=== PATIENT | male | born 1960 | race American Indian/Alaskan Native ===

== ENCOUNTER 2018-05-04 11:47 | Inpatient (IN) | payer OTHER ==
--- NOTE | 2018-05-04 11:45 | Cat Scan Report ---
CTA chest: Chest pain with elevated d-dimer. Rapid sequence images are obtained through the chest following IV contrast administration. Pulmonary embolus protocol utilized. 2-D coronal and sagittal images included. The pulmonary vessels are well opacified. There is a thrombus in the left main pulmonary artery which extends into the proximal superior and inferior pulmonary arteries. Several peripheral thrombi are identified in the lower lobe vessels. There is a thrombus in the right upper lobe pulmonary artery as well as multiple thrombi in the peripheral vessels of the right lower lobe. There is minimal reflux of contrast into the IVC. The interventricular septum is normal in position. The cardiac chambers appear generally normal in size. No cardiac thrombi noted. No adenopathy identified. The central airways are patent. The lungs are clear and well-inflated. No pleural effusion present. Impression: Moderate load of bilateral pulmonary emboli. Dr. Sagar Recinos notified.
--- NOTE | 2018-05-04 13:02 | Consultation ---
History of Present Illness Consult date: 05/04/18 Requesting physician: IAIN HOANG Consult reason: known to you History of present illness: The patient is a 57 year old male with no significant medical history who presented to Dr. Rush's office last week with complaints of shortness of breath and chest tightness ongoing for the past several days. He ordered a d- dimer which was 6,967. He was scheduled for a stat chest CTA which he had done at [facility] this morning which revealed moderate load of bilateral PE. He has been directly admitted for further evaluation and management. He denies any recent travel or prolonged immobilization. No previous history of PE or DVT. Past History Past Medical History: No medical history Past Surgical History: No surgical history Social history: smoking (occasional cigar). denies: alcohol abuse, prescription drug abuse, IV drug use Family history: no significant family history Medications and Allergies Allergies Allergy/AdvReac Type Severity Reaction Status Date / Time No Known Allergies Allergy Unverified 05/04/18 10:15 Review of Systems Constitutional: no fever, no chills Ears, nose, mouth and throat: no nasal congestion, no nasal discharge, no sinus pressure Cardiovascular: chest pain, shortness of breath, dyspnea on exertion Respiratory: no cough, no congestion, no wheezing Gastrointestinal: no abdominal pain, no nausea, no vomiting, no diarrhea, no constipation Genitourinary Male: no dysuria, no hematuria Musculoskeletal: no neck stiffness, no neck pain, no myalgias Integumentary: no rash, no pruritis Neurological: no parathesias, no numbness, no tingling, no headaches Endocrine: no cold intolerance, no heat intolerance Hematologic/Lymphatic: no easy bruising, no easy bleeding Allergic/Immunologic: no urticaria, no wheezing Physical Examination Vital Signs Temp Pulse Resp BP Pulse Ox 98.8 F 78 22 121/88 96 05/04/18 11:59 05/04/18 11:59 05/04/18 11:59 05/04/18 11:59 05/04/18 11:59 General appearance: no acute distress HEENT: Positive: PERRL, Normocephaly, Mucus Membranes Moist Neck: Positive: neck supple, trachea midline Cardiac: Positive: Reg Rate and Rhythm, S1/S2 Lungs: Positive: clear to auscultation Neuro: Positive: Grossly Intact Abdomen: Positive: Soft, Active Bowel Sounds. Negative: Tender Skin: Positive: Clear. Negative: Rash Extremities: Present: normal. Absent: edema Results - Imaging and Cardiology Echo: pending EKG: image reviewed (normal sinus rhythm) EKG interpretations - Telemetry EKG Rhythm: Sinus Rhythm - EKG Sinus rhythms and dysrhythmias: sinus rhythm Assessment and Plan Assessment/Plan: Acute PE Check hypercoaguable profile Check echo and BLE venous Dopplers Initiate heparin gtt The patient has been seen in conjunction with Dr. Recinos who agrees with the assessment and plan of care.
--- NOTE | 2018-05-04 13:28 | History and Physical Report ---
History of Present Illness Date of admission: 05/04/18 12:05 Chief complaint: It hurts when i breathe real deep History of present illness: 57 YO Male with NO PMH presents to ED for evaluation. Pt states that he has experienced shortness of breath over the past week with persistent symptoms over the past 3 days. Pt was seen by his intermediate frame tender, and underwent D dimer which was elevated. Pt subsequently underwent CTA of the chest which revealed bilateral Pulmonary Emboli. Pt admitted directly to medical floor at the request of the cardiology team. Pt seen and evaluated upon arrival. Pt acknowledges right calf pain. Pt denies fever, chills, CP, Palpitations, NVD, Syncope, Prolonged travel/immobility, individual/family history of DVT/PE, hemoptysis, trauma, productive cough, or recent ill contacts. Past History Past Medical History: No medical history, other (reviewed) Past Surgical History: No surgical history (reviewed) Social history: Family history: no significant family history (reviewed) Medications and Allergies Allergies Allergy/AdvReac Type Severity Reaction Status Date / Time No Known Allergies Allergy Unverified 05/04/18 10:15 Review of Systems Constitutional: no weight loss, no weight gain, no fever, no chills Ears, nose, mouth and throat: no ear pain, no ear discharge, no tinnitis, no decreased hearing, no nose pain, no nasal congestion Cardiovascular: no chest pain, no orthopnea, no palpitations, no rapid/ irregular heart beat, no edema Respiratory: shortness of breath, pleurisy, no dyspnea on exertion Gastrointestinal: no nausea, no vomiting, no diarrhea, no constipation Genitourinary Male: no hematuria, no flank pain, no discharge, no urinary frequency Rectal: no pain, no incontinence, no bleeding Musculoskeletal: no neck stiffness, no neck pain, no shooting arm pain, no arm numbness/tingling Integumentary: no rash, no pruritis, no redness, no sores Neurological: no head injury, no transient paralysis, no paralysis, no weakness , no parathesias Psychiatric: no anxiety, no memory loss, no change in sleep habits, no sleep disturbances, no insomnia, no hypersomnia, no change in appetite, no change in libido Endocrine: no cold intolerance, no heat intolerance, no polyphagia, no excessive thirst, no polydipsia, no polyuria, no nocturia Hematologic/Lymphatic: no easy bruising, no easy bleeding, no lymphadenopathy, no lymphedema Allergic/Immunologic: no urticaria, no persistent infections, no anaphylaxis, no angioedema Exam - Constitutional Vitals: Temp Pulse Resp BP Pulse Ox 98.8 F 78 22 121/88 96 05/04/18 11:59 05/04/18 11:59 05/04/18 11:59 05/04/18 11:59 05/04/18 11:59 General appearance: Present: mild distress - EENT Eyes: Present: PERRL ENT: hearing intact, clear oral mucosa - Neck Neck: Present: supple, normal ROM - Respiratory Respiratory effort: normal Respiratory: bilateral: diminished - Cardiovascular Heart Sounds: Present: S1 & S2. Absent: rub, click - Extremities Extremities: pulses symmetrical, No edema Peripheral Pulses: within normal limits - Abdominal General gastrointestinal: Present: soft, non-tender, non-distended, normal bowel sounds Male genitourinary: Present: normal - Integumentary Integumentary: Present: clear, warm, dry - Musculoskeletal Musculoskeletal: gait normal, strength equal bilaterally - Psychiatric Psychiatric: appropriate mood/affect, intact judgment & insight - Neurologic Neurologic: CNII-XII intact, moves all extremities Results - Labs CBC & Chem 7: 05/04/18 15:24 05/04/18 15:24 Assessment and Plan - Patient Problems (1) Pulmonary embolism Current Visit: Yes Status: Acute Qualifiers: Chronicity: acute Plan to address problem: Bilateral pulmonary embolism, Therapeutic anticoagulation. Discussed anticoagulation. Pt request eliquis and does not want coumadin therapy. Heparin drip discontinued, and patient started on therapeutic eliquis. Hypercoagulable workup, (2) DVT prophylaxis Current Visit: Yes Status: Acute Plan to address problem: scd to ble while in bed.
[2018-05-04 15:38] LABS: Hematocrit 44.6 % (35.5-45.6); Hemoglobin 15.2 gm/dl (11.8-15.2); Mean Corpuscular HGB Conc 34 % (32-34); Mean Corpuscular Hemoglobin 30 pg (28-32); Mean Corpuscular Volume 89 fl (84-94); Platelet Count 181 K/mm3 (140-440); Red Cell Distribution Width 13.7 % (13.2-15.2)
[2018-05-04] MEDS ORDERED: HEPARIN 10,000 UNITS/10 ML IV ONE (15:45)
[2018-05-04 15:47] LABS: INR 0.84 (0.87-1.13)
[2018-05-04 15:55] LABS: BUN/Creatinine Ratio 12; Blood Urea Nitrogen 11 mg/dL (9-20); Calcium 9.7 mg/dL (8.4-10.2); Hemolysis Index 5
[2018-05-04] MEDS ORDERED: HEPARIN/ 0.45% NACL-25,000 UNIT/500 ML 25,000 UNIT/500 ML BAG IV SCH (16:00)
[2018-05-04] MEDS: ELIQUIS PO SCH (23:06)
[2018-05-05 06:03] LABS: BUN/Creatinine Ratio 13; Blood Urea Nitrogen 13 mg/dL (9-20); Calcium 9.1 mg/dL (8.4-10.2); Hemolysis Index 4
[2018-05-05 07:47] VITALS: BP 138/84
--- NOTE | 2018-05-05 08:29 | Progress Note ---
Assessment and Plan Assessment/Plan: Acute PE/Acute DVT Shortness of breath/chest tightness resolved Hypercoagulable profile pending Echo 05/04/18: EF 45-50%, impaired relaxation, mildly reduced RV systolic function, RVSP 33mmHg BLE Venous Duplex: Evidence of acute DVT in the right PX TO DISTAL PERONEAL VEINS, THICK, SWIRLING BLOOD NOTED IN BOTH CFVs, SFVS AND POPLITEAL VEINS BILATERALLY Continue Eliquis 10mg BIX x 7 days, then 5mg BID Follow up appointment with Dr. Rush in the [place] office on 05/16/18 at 10:45 am. The patient has been seen in conjunction with Dr. Recinos who agrees with the assessment and plan of care. Subjective Date of service: 05/05/18 Principal diagnosis: acute PE Interval history: The patient is resting comfortably in bed. Chest tightness and shortness of breath resolved. Sinus rhythm on the monitor. Objective Last Vital Signs Temp 98.0 F 05/05/18 07:41 Pulse 70 05/05/18 07:41 Resp 19 05/05/18 07:41 BP 138/84 05/05/18 07:41 Pulse Ox 96 05/05/18 07:41 - Physical Examination General: No Apparent Distress HEENT: Positive: PERRL, Normocephaly, Mucus Membranes Moist Neck: Positive: neck supple, trachea midline Cardiac: Positive: Reg Rate and Rhythm, S1/S2 Lungs: Positive: clear to auscultation Neuro: Positive: Grossly Intact Abdomen: Positive: Soft, Active Bowel Sounds. Negative: Tender Skin: Positive: Clear. Negative: Rash Extremities: Present: normal. Absent: edema - Labs and Meds Coagulation 05/04/18 05/04/18 Range/Units 15:23 17:42 PT 11.9 L (12.2-14.9) Sec. INR 0.84 L (0.87-1.13) APTT 42.7 H (24.2-36.6) Sec. CBC 05/04/18 Range/Units 15:24 WBC 9.3 (4.5-11.0) K/mm3 RBC 5.00 (3.65-5.03) M/mm3 Hgb 15.2 (11.8-15.2) gm/dl Hct 44.6 (35.5-45.6) % Plt Count 181 (140-440) K/mm3 Comprehensive Metabolic Panel 05/04/18 05/05/18 Range/Units 15:24 05:11 Sodium 134 L 139 (137-145) mmol/L Potassium 5.2 H 4.7 (3.6-5.0) mmol/L Chloride 96.0 L 100.2 (98-107) mmol/L Carbon Dioxide 26 26 (22-30) mmol/L BUN 11 13 (9-20) mg/dL Creatinine 0.9 1.0 (0.8-1.5) mg/dL Glucose 83 85 (75-100) mg/dL Calcium 9.7 9.1 (8.4-10.2) mg/dL - Imaging and Cardiology EKG: image reviewed (normal sinus rhythm) Echo: report reviewed (05/04/18: EF 45-50%, impaired relaxation, mildly reduced RV systolic function, RVSP 33mmHg) - Telemetry EKG Rhythm: Sinus Rhythm - EKG Sinus rhythms and dysrhythmias: sinus rhythm
[2018-05-05] MEDS: ELIQUIS PO SCH (09:24)
--- NOTE | 2018-05-05 10:18 | Discharge Summary ---
Providers - Providers Date of Admission: 05/04/18 12:05 Attending physician: CHAPINCITO BRITO MD Primary care physician: STUDIO ENGINEER Hospitalization Disposition: DC-01 TO HOME OR SELFCARE Core Measure Documentation - Palliative Care Palliative Care/ Comfort Measures: Not Applicable Exam - Constitutional Vitals: Temp Pulse Resp BP Pulse Ox 98.0 F 70 19 138/84 96 05/05/18 07:41 05/05/18 07:41 05/05/18 07:41 05/05/18 07:41 05/05/18 07:41 Plan Activity: advance as tolerated, fall precautions Diet: low cholesterol Follow up with: PRIMARY CAREMD [Primary Care Provider] - 7 Days ASHLEY ARCHER MD [Staff Physician] - 7 Days Prescriptions: Apixaban [Eliquis] 5 mg PO Q12HR #60 tablet
== END 2018-05-05 12:30 | disposition home or self-care (01) | DRG 299 ==
LOC: ED 11:47 → 3A 12:05
PROVIDERS: ADMIT Internal Medicine; ATTEND Internal Medicine
DX: I82.433 Acute embolism and thrombosis of popliteal vein, bilateral (principal); I26.99 Other pulmonary embolism without acute cor pulmonale; I82.413 Acute embolism and thrombosis of femoral vein, bilateral; I82.493 Acute embolism and thrombosis of other specified deep vein of lower extremity, bilateral; F17.210 Nicotine dependence, cigarettes, uncomplicated; Z79.899 Other long term (current) drug therapy
CPT/HCPCS: 36415; 71275; 80048; 83516; 85027; 85301; 85305; 85307; 85520; 85610; 85613; 85730; 86147; 93306; 93970; J1644; Q9967